=== PATIENT | male | born 1950 | race Caucasian/White ===

== ENCOUNTER 2019-03-10 08:52 | Outpatient (CLI) | payer MEDICARE, BC | END 2019-03-10 23:59 | disposition home or self-care (01) | LOC: US 08:52 | PROVIDERS: ATTEND Internal Medicine Interventional Cardiology | DX: Z13.6 Encounter for screening for cardiovascular disorders (principal); I65.21 Occlusion and stenosis of right carotid artery; R42 Dizziness and giddiness | CPT/HCPCS: 76770-TC; 93880-TC ==